=== PATIENT | female | born 1955 | race African-American/Black ===

== ENCOUNTER 2020-08-16 13:49 | Emergency (ER) | payer OTHER ==
[2020-08-16 14:04] VITALS: BP 190/110; PULSE 89; BMI 34.3
[2020-08-16] MEDS ORDERED: KETOROLAC TROMETHAMINE 60 MG/2 ML VIAL IM ONE (14:37)
[2020-08-16] MEDS ORDERED: KETOROLAC TROMETHAMINE 30 MG/1 ML VIAL ONE (14:40)
== END 2020-08-16 15:50 | disposition home or self-care (01) ==
LOC: JERFT 13:49
PROC: 3E0233Z Introduction of Anti-inflammatory into Muscle, Percutaneous Approach (ICD-10-PCS; principal; 2020-08-16)
DX: M25.462 Effusion, left knee (principal)
CPT/HCPCS: 73562-TC-LT-FY; 99284-25

== ENCOUNTER 2021-02-18 16:46 | Emergency (ER) | payer OTHER ==
[2021-02-18 17:06] VITALS: BP 167/99; PULSE 97; TEMP 98.3; BMI 35.9
[2021-02-18 18:37] LABS: PH,URINE 6.5 (5.0-8.0); URINE APPEARANCE CLEAR; URINE BILIRUBIN NEGATIVE (NEGATIVE); URINE COLOR YELLOW; URINE GLUCOSE (UA) TRACE (NEGATIVE); URINE KETONE NEGATIVE (NEGATIVE); URINE LEUK ESTERASE NEGATIVE (NEGATIVE); URINE NITRITE NEGATIVE (NEGATIVE); URINE PROTEIN NEGATIVE (NEGATIVE)
[2021-02-18 18:38] LABS: HEMATOCRIT 29.1 % (32.4-45.2); HEMOGLOBIN 9.6 GM/dL (10.7-15.3); MEAN CELL VOLUME 87.9 fl (80-96); MEAN PLT VOLUME 7.1 fl (7.5-11.1); PLATELET COUNT 236 10^3/uL (134-434); RBC 3.31 M/mm3 (3.60-5.2); RDW 12.6 % (11.6-15.6); WHITE BLOOD COUNT 8.9 K/mm3 (4.0-10.0)
[2021-02-18 18:56] LABS: ALBUMIN 4.2 g/dl (3.4-5.0); CALCIUM 9.6 mg/dL (8.5-10.1)
[2021-02-18 18:57] LABS: BLOOD UREA NITROGEN 16.4 mg/dL (7-18)
[2021-02-18 19:00] LABS: CREATININE 0.8 mg/dL (0.55-1.3)
[2021-02-18 19:01] LABS: BILIRUBIN,TOTAL 0.3 mg/dL (0.2-1); TOT PROT 7.3 g/dl (6.4-8.2)
[2021-02-18] MEDS ORDERED: LIDOCAINE 5% TOPICAL PATCH TP ONE (20:13)
[2021-02-18] MEDS ORDERED: LIDOCAINE 5% TOPICAL PATCH ONE (20:18)
== END 2021-02-18 20:30 | disposition home or self-care (01) ==
LOC: JERFT 16:46
DX: M54.5 Low back pain (principal)
CPT/HCPCS: 36415; 74176-TC; 80053; 81003; 85027; 87086; 99284-25